=== PATIENT | male | born 1960 | race Caucasian/White ===

== ENCOUNTER 2017-08-26 01:21 | Inpatient (IN) | payer OTHER ==
[~2017-08-26] VITALS: Ht 182.9 cm; Wt 112.5 kg
[2017-08-26] MEDS ORDERED: VITAMIN C250 M3 PO (07:01)
[2017-08-26] MEDS ORDERED: VITAMIN D1000 UNIT PO (07:02)
[2017-08-26] MEDS ORDERED: COQ-1030 MG PO (07:03)
[2017-08-26] MEDS ORDERED: HYDROCHLOROTH12.5 M3 PO (07:04)
[2017-08-26] MEDS ORDERED: ZETIA10 M1 PO (07:04)
[2017-08-26] MEDS ORDERED: CRESTOR20 M2 PO (07:05)
[2017-08-26] MEDS ORDERED: MULTIVITAMINS1 EAC9 PO (07:05)
[2017-08-26] MEDS ORDERED: INDOMETHACIN25 M1 PO (09:56)
[2017-08-26] MEDS ORDERED: MIRALAX17 G1 PO (09:56)
[2017-08-26] MEDS ORDERED: MS CONTIN15 M3 PO (09:56)
[2017-08-26] MEDS ORDERED: ADULT LOW DOSE81 MG PO (09:56)
[2017-08-26] MEDS ORDERED: COLACE100 M1 PO (09:56)
[2017-08-26] MEDS ORDERED: DILAUDID2 M1 PO (09:56)
--- NOTE | 2017-08-26 10:22 | Patient Discharge Instructions ---
Discharge Instructions General Discharge Information You were seen/treated for: osteoarthritis right hip You had these procedures: right total hip replacement Watch for these problems: Increasing pain despite the use of pain medication Increasing redness, warmth or swelling Drainage of any type from incision Inability to bear weight on operative leg Persistent nausea and vomiting Fever greater than 101.5 degrees Call Surgeon to remove: Ripley (for wound check 2 weeks) Other wound care: Please keep wound clean and dry. No ointments or lotions of any type on or near incision. Your dressing will be changed by your nurse on the second day after your surgery. Daily dry dressing changes are recommended each day thereafter. Do not soak your wound- no tub baths/swimming. You may shower 48hr after surgery. Special Instructions: Aspirin: You are taking this medication to help prevent blood clot formation. Please take with food to protect your stomach lining. Please take as directed. Constipation: Pain medication can cause constipation. It is recommended that you take Colace and Miralax each day. Discontinue this medication if you develop loose stool or diarrhea. If you wish to continue this medication, it is available over the counter. If you are unable to move your bowels or unable to pass gas and are developing bloating, nausea, or vomiting as a result, please contact your doctor. Diet Continue normal diet: Yes Recommended Diet: Regular Activity Full Activity/No Limits: No (self limiting) Activity Self Limited: Yes Acute Coronary Syndrome Inclusion Criteria At DC or during hospital stay patient has or had the following: ACS DIAGNOSIS No Discharge Core Measures Meds if any: Prescribed or Continued at Discharge Meds if any: NOT Prescribed or Continued at Discharge Congestive Heart Failure Inclusion Criteria At DC or during hospital stay patient has or had the following: CHF DIAGNOSIS No Discharge Core Measures Meds if any: Prescribed or Continued at Discharge Meds if any: NOT Prescribed or Continued at Discharge Cerebrovascular accident Inclusion Criteria At DC or during hospital stay patient has or had the following: CVA/TIA Diagnosis No Discharge Core Measures Meds if any: Prescribed or Continued at Discharge Meds if any: NOT Prescribed or Continued at Discharge Venous thromboembolism Inclusion Criteria VTE Diagnosis No VTE Type NONE VTE Confirmed by (Test) NONE Discharge Core Measures - Per Current guidelines, there needs to be overlap - treatment for the first 5 days of Warfarin therapy. - If discharged on Warfarin prior to 5 days of - overlap therapy, the patient will need to be - assessed for post discharge needs including - *Post discharge parental anticoagulation - *Warfarin and/or parental anticoagulation education - *Follow up date to check INR post discharge At least 5 days overlap therapy as Inpatient No Meds if any: Prescribed or Continued at Discharge Note: Overlap Therapy is Warfarin and Anticoagulant Meds if any: NOT Prescribed or Continued at Discharge
--- NOTE | 2017-08-26 10:25 | Surg Short-stay <48hrs Dis Sum ---
Visit Information Visit Dates Admission Date: 08/26/17 Discharge Date: 08/27/17 Surgical Short Stay DC Summary Admission Diagnosis: osteoarthritis right hip Final Diagnosis: osteoarthritis right hip Procedure(s): right anterior hip replacement Summary/Significant Findings: Total hip arthroplasty WBAT, use assistive devices as needed Patient was admitted to the hospital for an elective total joint replacement. Procedure was tolerated well and patient was transferred to a general surgical floor. Diet was advanced and tolerated. Physical therapy performed evaluation and treatment. At time of hospital discharge, vital signs were stable, neurovascular status was intact, and pain was controlled with the use of oral pain medications. Follow up with Dr. Terry in 6 weeks from date of surgery. Please call his office to schedule/confirm this appointment. Condition at Discharge: stable Discharge Disposition: home health services Discharge instructions provided to patient/family: Yes Post discharge follow-up plan: follow-up with Dr. Terry in 6 weeks Copies to: Neil Terry MD
--- NOTE | 2017-08-26 11:36 | RADIOLOGY REPORT ---
EXAMINATION: XR HIP, RIGHT CLINICAL INFORMATION: Right hip replacement COMPARISON: None TECHNIQUE: Two views of the right hip. FINDINGS: Status post right hip arthroplasty. Hardware is intact. No gross evidence of acute osseous abnormality. Cortical irregularity lateral aspect of the acetabulum may represent chronic change. Recent postoperative changes with air in the soft tissues and drain projecting upon the proximal right thigh. IMPRESSION: Status post right hip arthroplasty. Recent postoperative changes.
--- NOTE | 2017-08-26 11:45 | Admission Core Measures ---
Acute Coronary Syndrome (CM) ACS Core Measures Acute Coronary Syndrome Diagnosis No Congestive Heart Failure (NEW) CHF Core Measures Congestive Heart Failure Diagnosis No Cerebrovascular Accident CVA Core Measures CVA/TIA Diagnosis No Venous Thromboembolism VTE Core Pat (View Protocol) VTE Risk Factors Surgery No Mechanical VTE Prophylaxis d/t N/A MechProphylax Ordered No VTE Pharm Prophylaxis d/t NA PharmProphylax ordered Problem List As ranked by this Provider includes Assessment & Plan 1. Unilateral primary osteoarthritis, right hip HOME MEDS Home Med List Ascorbic Acid (Vitamin C) 250 MG TABLET 2 PO DAILY supp (Reported) Aspirin (Adult Low Dose Aspirin EC) 81 MG TABLET.DR 81 MG PO BID DVT PROPHALAXIS Cholecalciferol (Vitamin D3) (Vitamin D) 1,000 UNIT TABLET 3 PO DAILY supp ( Reported) Docusate Sodium (Colace) 100 MG CAPSULE 1 CAP PO BID PREVENT CONSTIPATION Ezetimibe (Zetia) 10 MG TABLET 1 TAB PO DAILY chol (Reported) Hydrochlorothiazide 12.5 MG CAPSULE 1 CAP PO DAILY bp (Reported) Hydromorphone HCl (Dilaudid) 2 MG TABLET 1-2 TAB PO Q4-6 PRN PRN PAIN Indomethacin 25 MG CAPSULE 1 CAP PO TID HETEROTOPIC BONE PREVENTION Morphine Sulfate (Ms Contin) 15 MG TABLET.ER 1 TAB PO BID PRN PAIN Multiple Vitamin (Multivitamins) 1 EACH TABLET 1 TAB PO DAILY supp (Reported) Polyethylene Glycol 3350 (Miralax) 17 GRAM POWD.PACK 1 PAC PO DAILY PREVENTION CONSTIPATION Rosuvastatin Calcium (Crestor) 20 MG TABLET 1 TAB PO DAILY chol (Reported) Ubidecarenone (Coq-10) 30 MG CAPSULE 1 PO DAILY supp (Reported)
[2017-08-26 11:50] VITALS: BP 132/68
--- NOTE | 2017-08-26 12:04 | PN- Orthopedic ---
Subjective Subjective: poc s/p right nivia w/hemovac drain sitting up in bed comfortable denies cp, sob, no n+v Objective Vital Signs and I&Os Vital Signs Date Time Temp Pulse Resp B/P B/P Pulse O2 O2 Flow FiO2 Mean Ox Delivery Rate 08/26 1150 97.1 56 18 132/68 96 Room Air Room Air Physical Exam: cv: rrr lungs: clear abd: soft, +bs ext: left thigh soft drsg dry distal cms intact hemovac drain: minimal sanguinous output 400cc intraop blood loss Assessment/Plan Assessment/Plan ortho stable plan oob with pt asa 81 mg/alps for dvt prophylaxis indocin tid for HO advance diet possible d/c later today(will monitor drain output) Core Measures Venous Thromboembolism VTE Risk Factors Surgery No Mechanical VTE Prophylaxis d/t N/A MechProphylax Ordered No VTE Pharm Prophylaxis d/t NA PharmProphylax ordered
--- NOTE | 2017-08-26 14:18 | Operative Report ---
Operative/Inv Procedure Report Surgery Date: 08/26/17 Name of Procedure: Right total hip replacement Pre-Operative Diagnosis: Primary right hip DJD Post-Operative Diagnosis: Same Estimated Blood Loss: 350 Surgeon/Safekeeping Clerk: Mara AGUILA,Neil Gordon Anesthesia: block Operative/Procedure Note Note: Description of Procedure: The patient was taken to the operating room and positively identified. After induction of spinal anesthesia and administration of appropriate pre-operative antibiotics, the patient was positioned supine on the operating room table and all bony prominences were well padded. After performing a surgical timeout, the right lower extremity was prepped and draped in the usual sterile fashion. A direct anterior approach was made to the right hip. The incision was carried sharply through superficial soft tissues to the level of the fascia. Meticulous hemostasis was maintained with Bovie electocautery. The fascia over the tensor fascia tia muscle was opened sharply and the interval between the TFL and the sartorius was entered bluntly taking care to stay lateral to the lateral femoral cutaneous nerve. Retractors were placed around the femoral neck and the pericapsular fat was identified. The ascending branches of the lateral femoral circumflex vessels were identified and carefully coagulated. The pericapsular fat and anterior capsule were then resected. A napkin ring osteotomy was performed and the femoral head was removed without difficulty. Attention was then turned to the acetabulum. After appropriate placement of retractors, the acetabulum was exposed. Soft tissue was cleaned from the acetabular margin and notch. Overhanging osteophytes were removed and the teardrop was exposed. The acetabulum was then sequentially reamed to accept a 64 mm Jessica Trident Tritanium hemispherical shell. This was impacted into place in the appropriate position and a single screw was used for supplemental fixation. It was then fit with a 36 mm Trident X3 zero degree polyethylene insert. Attention was then turned to the femur. After performing the appropriate ligament releases, the proximal femur was exposed. It was then sequentially broached to accept a size 6 Jessica Accolade 2 stem. This was trialed for leg length and stability. The trial component was removed and the final component was impacted into place. The trunnion was carefully cleaned and fit with a 36 mm, +2.5 Biolox delta ceramic femoral head. The hip was reduced and put through a full range of motion and found to be stable. The articular space was then irrigated with sterile saline. The periarticular soft tissues were infilitrated with Marcaine. The fascial layer was closed with interrupted #1 vicryl suture and the skin was re-approximated with interrupted 2 -0 vicryl. The skin was closed with a running 3-0 V-Lock suture. Steri-strips and a sterile dressing were applied. The patient was awakened and taken to the recovery room in satisfactory condition.
[2017-08-26 16:00] VITALS: BP 128/72
[2017-08-26 22:12] VITALS: BP 100/60
[2017-08-26 22:14] VITALS: BP 140/70
[2017-08-27 01:49] VITALS: BP 124/80
[2017-08-27 06:15] VITALS: BP 130/70
--- NOTE | 2017-08-27 08:20 | PN- Orthopedic ---
Subjective Subjective: POD#1 S/P RIGHT JAYCEE DOING WELL AMBUALTING WITH PT DENIES CP, SOB, NO N+V WITH DIET Objective Vital Signs and I&Os Vital Signs Date Time Temp Pulse Resp B/P B/P Pulse O2 O2 Flow FiO2 Mean Ox Delivery Rate / 0615 98.5 72 20 130/70 94 Room Air / 0149 98.2 70 20 124/80 92 Room Air / 2214 97.9 70 20 140/70 96 / 1600 97.4 58 18 128/72 96 Room Air Room Air / 1150 97.1 56 18 132/68 96 Room Air Room Air Intake & Output / 1600 08/27 0800 08/27 0000 08/26 1600 08/26 0800 08/26 0000 Intake Total 120 1365 750 Output Total 380 1160 450 Balance -260 205 300 Intake, IV 125 150 Intake, Oral 120 1240 600 Output, 80 60 150 Drainage Output, Urine 300 1100 300 Patient 248 lb Weight Weight Bed scale Measurement Method Physical Exam: CV: RRR LUNGS: CLEAR ABD: SOFT, +BS EXT: THIGH SOFT DRSG CHANGED, WOUND C/D/I DRAIN D/C'D DISTAL CMS INTACT Assessment/Plan Assessment/Plan ORTHO SABLE PLAN D/C PLANNING Core Measures Venous Thromboembolism VTE Risk Factors Surgery No Mechanical VTE Prophylaxis d/t N/A MechProphylax Ordered No VTE Pharm Prophylaxis d/t NA PharmProphylax ordered
[2017-08-27 09:00] VITALS: BP 124/62
== END 2017-08-27 11:45 | DRG 470 ==
LOC: SDA 01:21 → ENRESERV 10:51 → ENTRNSPT 11:13 → EDTRNSPTSTS 11:16 → CMPTRNSPT 11:28 → 2NB 11:29 → ENPENDDIS 08-27 08:24 → ENTRNSPT 08-27 11:36 → EDTRNSPT 08-27 11:39 → EDTRNSPTSTS 08-27 11:39 → 2NB 08-27 11:45 → CMPTRNSPT 08-27 12:09
PROC: 0SR904A Replacement of Right Hip Joint with Ceramic on Polyethylene Synthetic Substitute, Uncemented, Open Approach (ICD-10-PCS; principal; 2017-08-26)
DX: M16.11 Unilateral primary osteoarthritis, right hip (principal); Z79.891 Long term (current) use of opiate analgesic; I10 Essential (primary) hypertension; E78.5 Hyperlipidemia, unspecified; Z88.6 Allergy status to analgesic agent; Z88.8 Allergy status to other drugs, medicaments and biological substances
CPT/HCPCS: 2NBP; 73502-RT; 97110-GO; 97116-GO; 97161-GP; 97530-GO; J0131; J0690; J0735; J2405; J3490; J7042